=== PATIENT | male | born 1995 | race Caucasian/White ===

== ENCOUNTER 2021-12-12 07:22 | Emergency (ER) | payer OTHER ==
[~2021-12-12] VITALS: Ht 188 cm; Wt 113.4 kg
[2021-12-12] MEDS ORDERED: KLOR-CON8 MEQ (07:45)
[2021-12-12] MEDS ORDERED: XANAX XR1 MG PO (07:46)
[2021-12-12] MEDS ORDERED: KETO10TA2 PO (15:55)
[2021-12-12] MEDS ORDERED: TAMS0.4C PO (15:55)
== END 2021-12-12 16:20 ==
LOC: ER 07:22
DX: N20.9 Urinary calculus, unspecified (principal); R10.32 Left lower quadrant pain; Z20.822 Contact with and (suspected) exposure to COVID-19